=== PATIENT | male | born 1950 | race Caucasian/White ===

== ENCOUNTER → 2024-03-28 14:25 | Outpatient (BNVA) | payer OTHER, SELFPAY | PROVIDERS: Family Provider Family Medicine; PCP Family Medicine; Visit Provider Nurse Practitioner | DX: S42.002A Fracture of unspecified part of left clavicle, initial encounter for closed fracture (principal); V80.010A Animal-rider injured by fall from or being thrown from horse in noncollision accident, initial encounter | CPT/HCPCS: 73000; 73030 ==